=== PATIENT | female | born 1975 | race Two or more races ===

== ENCOUNTER 2024-09-13 09:02 | Outpatient (RCR) | payer MEDICAID, SELFPAY ==
[2024-09-13 09:58] LABS: HCG Qualitative,Urine Negative
--- NOTE | 2024-09-13 10:00 | XR_ITS ---
Examination: ADITHYA, hepatobiliary radioisotope scan Date and time of exam: September 13, 2024 0939 hours INDICATIONS: Right upper abdominal pain radiating to the back beginning April 2024 Technique: 5.9 mCi of 99M Hepatolite administered. Serial imaging then obtained from immediate through 60 minutes. Findings: Radioisotope activity within the liver is reasonably homogenous. Common bile duct small bowel activity noted Impression: No gallbladder activity, clinical correlation advised
== END 2024-09-18 23:59 | disposition home or self-care (01) ==
LOC: SNUC 09:02
DX: R10.9 Unspecified abdominal pain (principal); Z32.00 Encounter for pregnancy test, result unknown
CPT/HCPCS: 78227; 81025; A9537